=== PATIENT | male | born 1990 | race Caucasian/White ===

== ENCOUNTER 2020-10-04 02:05 | Emergency (ER) | payer MEDICAID ==
[~2020-10-04] VITALS: Ht 172.7 cm; Wt 113.4 kg
[2020-10-04 02:15] VITALS: BP 122/54
--- NOTE | 2020-10-04 02:15 | NUR ---
PT TAKEN TO CHAIR C
--- NOTE | 2020-10-04 02:30 | NUR ---
SEE COMPLETE ASSESSMENT. PT SEATED IN BED. CALM AND COOPERATIVE AT THIS TIME. WILL CONTINUE TO MONITOR.
--- NOTE | 2020-10-04 02:49 | NUR ---
ERMD EVALUATING PT.
--- NOTE | 2020-10-04 03:45 | NUR ---
PT SEEN WITH EYES CLOSED. VISIBLE CHEST RISE AND FALL NOTED. NO APPARENT DISTRESS AT THIS TIME.
--- NOTE | 2020-10-04 04:15 | NUR ---
PT AWAKE AND AMBULATED TO RESTROOM. STEADY GAIT OBSERVED.
--- NOTE | 2020-10-04 07:16 | NUR ---
[id number],vss
[2020-10-04 07:17] VITALS: BP 121/68
--- NOTE | 2020-10-04 07:17 | NUR ---
Patient discharged with v/s stable. Written and verbal after care instructions given and explained. Patient verbalized understanding. Ambulatory with steady gait. All questions addressed prior to discharge. Advised to follow up with PMD.
== END 2020-10-04 07:17 | disposition home or self-care (01) ==
LOC: EDBD 02:05 → MED 02:05
DX: R45.1 Restlessness and agitation (principal); F29 Unspecified psychosis not due to a substance or known physiological condition; I10 Essential (primary) hypertension; F17.200 Nicotine dependence, unspecified, uncomplicated
CPT/HCPCS: 99283